=== PATIENT | female | born 1995 | race Two or more races ===

== ENCOUNTER 2023-03-13 12:23 | Emergency (ER) | payer OTHER ==
[~2023-03-13] VITALS: Ht 152.4 cm; Wt 68.9 kg
[2023-03-13 15:15] LABS: HEMATOCRIT 39.7 % (36.0-45.00); HEMOGLOBIN 13.4 g/dL (12.0-15.00); MEAN CELL VOLUME 92.2 fL (80.00-100.00); MEAN CORPUSCULAR HEMOGLOBIN 31.3 pg (27.00-32.0); MEAN CORPUSCULAR HGB CONC 33.9 g/dl (32.0-36.0); PLATELET COUNT 269 K/uL (150-450); RED CELL DISTRIBUTION WIDTH 12.7 % (11.5-14.5)
== END 2023-03-13 18:45 | disposition home or self-care (01) ==
LOC: ER 12:23
PROVIDERS: General Practice
DX: M77.11 Lateral epicondylitis, right elbow (principal); R60.0 Localized edema